=== PATIENT | female | born 1935 | race Caucasian/White ===

== ENCOUNTER → 2019-04-23 | Day surgery (SDC) | payer MEDICARE ==
--- NOTE | 2019-04-20 12:18 | Diagnostic Imaging Report ---
EXAMINATION: PA and lateral views of the chest. COMPARISON: None CLINICAL HISTORY: Preoperative study for orthopedic procedure DISCUSSION: Lines/tubes: None. Lungs: The lungs are well inflated and clear. There is no evidence of pneumonia or pulmonary edema. Pleura: There is no pleural effusion or pneumothorax. Heart and mediastinum: The cardiomediastinal silhouette is normal. Atherosclerotic calcifications of the thoracic aorta. Bones and soft tissues: No acute bony abnormalities. Degenerative changes in the thoracic spine . Cervical spine fusion hardware partially visualized. IMPRESSION: No acute cardiopulmonary abnormalities. Signed by: Dr. Goldy Amaro M.D. on 04/20/2019 12:15 PM
[2019-04-20 12:29] LABS: BASOPHILS % 0.2 % (0.0-1.0); EOSINOPHILS # (AUTO) 0.2 (0.0-0.4); EOSINOPHILS % 2.9 % (0.0-6.0); HEMATOCRIT 31.2 % (34.2-44.1); HEMOGLOBIN 10.3 g/dL (12.0-16.0); LYMPHOCYTES # (AUTO) 1.4 (1.0-3.2); LYMPHOCYTES % 25.9 % (18.0-39.1); MEAN CORPUSCULAR HEMOGLOBIN 29.4 pg (28-32); MEAN CORPUSCULAR VOLUME 89.1 fL (81-99); MONOCYTES # (AUTO) 0.3 (0.2-0.8); MONOCYTES % 5.8 % (4.4-11.3); NEUTROPHILS # (AUTO) 3.6 (2.1-6.9); NEUTROPHILS % 64.8 % (38.7-80.0); PLATELET COUNT 210 x10e3/uL (140-360); RED CELL DISTRIBUTION WIDTH 13.5 % (11.7-14.4)
[~2019-04-23] MED LIST: ACETAMINOPHEN/CODEINE 300MG - 30MG TAB ONE; AMLODIPINE BESYL5 MG PO; ATENOLOL50 MG PO; CEFAZOLIN SOD 1 GM/NS 50ML 50 ML IV ONE; DEXAMETHASONE SOD PHOS INJ 4 MG/ML VIAL ONE; FENTANYL CITRATE/PF 100MCG/2 ML INJ ONE; FLUMAZENIL 0.5MG/ 5ML VIAL ONE; HYDROMORPHONE 2MG/ML 2 MG/ML ML ONE; LIDOCAINE HCL 2% LOCAL INJ 5 ML SDV VIAL INJ ONE; LISINOPRIL10 MG PO; LOVASTATIN40 MG PO; MIDAZOLAM HCL 2 MG/2 ML VIAL ONE; OMEPRAZOLE40 MG PO; ONDANSETRON HCL INJ 2MG/ML 2ML 2 MG/ML VIAL ONE; PROPOFOL IV EMULSION 10 MG/ML 20 ML VIAL ONE; SEVOFLURANE INHAL SOLN 250 ML PEN BTL ONE; ULTRAM50 MG PO
--- OUTSIDE RECORDS SUMMARY | 2019-04-23 08:56 | XMS REPORT | Summary of Care ---
Author Author [facility] Outpatient Imaging [facility] Outpatient [facility] Address Unknown Phone Unavailable Encounter HQ Encntr_alikathy(FIN) [id number] Date(s): 02/14/19 - 02/14/19 [facility] [address] [facility], [address] [place] [phone] Discharge Disposition: Home or Self Care Attending Physician: Marcos Blue MD Referring Physician: Marcos Blue MD Vital Signs No data available for this section Problem List No data available for this section Allergies, Adverse Reactions, Alerts No data available for this section Medications No data available for this section Results No data available for this section Immunizations No data available for this section Procedures No data available for this section Social History No data available for this section Assessment and Plan No data available for this section
--- OUTSIDE RECORDS SUMMARY | 2019-04-23 08:56 | XMS REPORT | Continuity of Care Document ---
Author Author [employer] [facility] Address Unknown Phone Unavailable Problems Problem Status Onset Date Classification Date Reported Comments Source Cervical disc disorder, unspecified, unspecified cervical region 12/31/2017 04/04/2018 [facility] [place] M25.512 - PAIN IN LEFT SHOULDER Active 08/24/2017 [facility] Medications Medication Details Route Status Patient Instructions Ordering Provider Order Date Source Allergies, Adverse Reactions, Alerts Substance Category Reaction Severity Reaction type Status Date Reported Comments Source Immunizations Immunization Date Given Site Status Last Updated Comments Source Results Order Name Results Value Reference Range Date Interpretation Comments Source Knee wo contrast MRI Knee wo contrast MRI EXAM: MR LEFT KNEE WITHOUT CONTRAST DATE: 02/26/2019 2:17 PM CDT INDICATION: - M25.562 Pain in left knee, medial left knee pain for 4 weeks COMPARISON: None TECHNIQUE: Multiplanar, multisequence noncontrast imaging of the knee on the 3 Beti magnet. FINDINGS: Menisci: Medial meniscus: Horizontal cleavage tear is noted of the body and posterior horn. Lateral meniscus: Intact. Ligaments: The ACL, PCL, medial and lateral collateral ligaments and the capsular ligaments are intact. Extensor mechanism: The quadriceps tendon, patella and the patellar tendon are intact. The medial and lateral patellar retinaculum are intact. Muscles: No signal abnormality in the muscles. Cartilage: There is a 10 mm focus of high-grade cartilage loss in the posterior nonweightbearing medial femoral condyle with associated subchondral cystic changes. There is a small fissure in the posterior central weightbearing lateral tibial plateau with subchondral cystic changes. Several subcentimeter foci of high-grade cartilage loss are noted throughout the lateral and medial patellar facet with associated subchondral cystic changes. There is a large region of high-grade cartilage loss involving the patellar apex. Bone: A small knee joint effusion is noted. No fractures identified. Visualized bone marrow signal is within normal limits. Soft tissue: Within normal limits. No abnormality of the neurovascular structures. IMPRESSION: 1. Medial meniscal horizontal cleavage tear of the body and posterior horn 2. 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 Full-thickness cartilage fissure of the posterior weightbearing lateral tibial plateau 4. 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 SL: JOYCE 02/26/2019 - - Read by: Hans Schneider MD Dictated Date/time: 02/26/19 16:01 Electronically Signed by: Hans Schneider MD 02/26/19 16:06 FINAL REPORT [facility] Knee 1-2 Views unilateral DX Knee 1-2 Views unilateral DX EXAM: XR LEFT KNEE 2 VIEWS DATE: 02/14/2019 13:41 CDT INDICATION: - pain in left knee COMPARISON: None TECHNIQUE: AP and lateral radiographs of the knee FINDINGS: No acute fracture or malalignment is identified. Minimal marginal osteophytes visualized. There is no excessive joint fluid. No soft tissue abnormality is identified. IMPRESSION: 1. No significant radiographic abnormality. 02/14/2019 - - Read by: Destiney Dawson MD Dictated Date/time: 02/14/19 14:59 Electronically Signed by: Destiney Dawson MD 02/14/19 15:00 FINAL REPORT [facility] Thyroid US Thyroid US EXAM: US THYROID DATE: 05/26/2018 3:44 PM CDT INDICATION: - E04.1 Nontoxic single thyroid nodule ADDITIONAL INFORMATION: None. COMPARISON: None. TECHNIQUE: Multiplanar grayscale and color Doppler ultrasound of the neck were obtained in the area of the thyroid. FINDINGS: Thyroid parenchyma: Minimal heterogeneity Size: Right thyroid: 4.1 cm in span by 1.2 cm in AP dimension by 1.7 cm transversely. Left thyroid: 3.9 cm in span by 1.4 cm in AP dimension by 1.4 cm transversely. Isthmus thickness: 2.6 mm in thickness Nodule 1: Location: Right lower pole Size: 9.5 x 5.5 x 8.7 mm Composition: Cystic or almost completely cystic (0 points). Echogenicity: Anechoic (0 points). Shape: Wider than tall (0 points). Margins: Smooth (0 points). Echogenic foci: Absent (0 points). Other: None. ACR TI-RADS Score: TR1 - Benign (total 0 points). -- ACR recommendation: No f/u or FNA. Recommendations: No follow-up needed. Nodule 2: Location: Lower pole on left Size: 8.4 x 5.9 x 7.1 mm Composition: Mixed cystic and solid (1 point). Echogenicity: Isoechoic (1 point). Shape: Wider than tall (0 points). Margins: Smooth (0 points). Echogenic foci: Absent (0 points). Other: None. ACR TI-RADS Score: TR2 - Not suspicious (total 1-2 points). -- ACR recommendation: No f/u or FNA. Recommendations: No follow-up needed Cervical lymph nodes: Normal. IMPRESSION: 1. There are multiple benign-appearing nodules in the thyroid lobes bilaterally. The underlying heterogeneity may be indicative of early multinodular goiter. 05/26/2018 - - Read by: Venu Cabrera MD Dictated Date/time: 05/29/18 08:22 Electronically Signed by: Venu Cabrera MD 05/29/18 08:36 FINAL REPORT [facility] Spine cervical 2 or 3 view DX Spine cervical 2 or 3 view DX EXAM: XR CERVICAL SPINE 3 VIEWS DATE: 12/27/2017 1:27 PM [employer]PER[employer] INDICATION: m50.90 722.91 - M50.90 Cervical disc disorder, unspecified, unspecified cervical region COMPARISON: None available TECHNIQUE: AP, open-mouth odontoid and lateral radiographs of the cervical spine - 3 views FINDINGS: Osteopenia noted. Minimal grade 1 degenerative anterolisthesis present at C3-C4 Vertebral body heights are normal. No cervical spine fracture is identified. Satisfactory appearance of anterior cervical discectomy and fusion present at C4-C6. Osseous incorporation of interbody bone graft material noted. No prevertebral soft tissue edema observed. Mild degenerative disc disease present at C3-C4 Moderate degenerative disc disease present at C6-C7. Uncovertebral joint hypertrophy present at C3-C4, C6-C7. Multilevel mild bilateral facet arthropathy of the cervical spine noted. Calcification of the aortic arch noted. IMPRESSION: Satisfactory appearance of anterior cervical discectomy and fusion at C4 C6. Multilevel degenerative disc disease, uncovertebral joint hypertrophy, facet arthropathy of the cervical spine as described. 12/27/2017 - - Read by: Marcos Dunn MD Dictated Date/time: 12/27/17 15:55 Electronically Signed by: Marcos Dunn MD 12/27/17 17:35 FINAL REPORT [facility] Spine lumbar 2 or 3 views DX Spine lumbar 2 or 3 views DX EXAM: XR THORACIC SPINE 2 VIEWS EXAM: XR LUMBAR SPINE 2 VIEWS DATE: 08/24/2017 12:58 PM CDT INDICATION: - M25.512 Pain in left shoulder COMPARISON: None TECHNIQUE: AP and lateral radiographs of the thoracic and lumbar spine. DISCUSSION: Minimal S-shaped scoliosis of the thoracic spine. Thoracic and lumbar vertebral body heights are maintained. Mild disc height loss with anterior endplate sclerosis and moderate vertebral body osteophytes throughout the mid and lower thoracic spine. Moderate disc height loss at L4-5 and L5-S1. Mild anterior vertebral body osteophytes of the lower lumbar spine. Severe facet arthropathy at L4-S1. IMPRESSION: 1. Minimal S-shaped scoliosis of the thoracic spine. 2. Moderate degenerative disease of the mid and lower thoracic spine. 3. Moderate degenerative disc disease and severe facet arthropathy of the lower lumbar spine. 08/24/2017 - - Read by: Daryl Cervantes MD Dictated Date/time: 08/24/17 13:27 Electronically Signed by: Daryl Cervantes MD 08/24/17 13:30 FINAL REPORT [facility] Spine thoracic 3 views DX Spine thoracic 3 views DX EXAM: XR THORACIC SPINE 2 VIEWS EXAM: XR LUMBAR SPINE 2 VIEWS DATE: 08/24/2017 12:58 PM CDT INDICATION: - M25.512 Pain in left shoulder COMPARISON: None TECHNIQUE: AP and lateral radiographs of the thoracic and lumbar spine. DISCUSSION: Minimal S-shaped scoliosis of the thoracic spine. Thoracic and lumbar vertebral body heights are maintained. Mild disc height loss with anterior endplate sclerosis and moderate vertebral body osteophytes throughout the mid and lower thoracic spine. Moderate disc height loss at L4-5 and L5-S1. Mild anterior vertebral body osteophytes of the lower lumbar spine. Severe facet arthropathy at L4-S1. IMPRESSION: 1. Minimal S-shaped scoliosis of the thoracic spine. 2. Moderate degenerative disease of the mid and lower thoracic spine. 3. Moderate degenerative disc disease and severe facet arthropathy of the lower lumbar spine. 08/24/2017 - - Read by: Daryl Cervantes MD Dictated Date/time: 08/24/17 13:27 Electronically Signed by: Daryl Cervantes MD 08/24/17 13:30 FINAL REPORT [facility] Vital Signs Vital Sign Value Date Comments Source Encounters Location Location Details Encounter Type Encounter Number Reason For Visit Attending Provider ADM Date DC Date Status Source [facility] [place] [facility] [id number] Marcos Blue 08/24/2017 08/25/2017 [facility] [place] [facility] [id number] Marcos Blue 12/27/2017 12/28/2017 ELIESER Foster [facility] [place] [facility] [id number] Marcos Blue 05/26/2018 [facility] [place] [facility] [id number] Marcos Blue 02/14/2019 02/15/2019 [facility] Procedures Procedure Code Date Perfomer Comments Source
--- OUTSIDE RECORDS SUMMARY | 2019-04-23 08:56 | XMS REPORT | Summary of Care ---
Author Author [facility] Outpatient Imaging [facility] Outpatient [facility] Address Unknown Phone Unavailable Encounter HQ Alannantr_alikathy(FIN) [id number] Date(s): 05/26/18 - 05/26/18 [facility] [address] [facility], [address] [place], [place] [address] [phone] Discharge Disposition: Home or Self Care Attending [...]
--- OUTSIDE RECORDS SUMMARY | 2019-04-23 08:56 | XMS REPORT | Summary of Care ---
Author Author [facility] Outpatient Imaging [facility] Outpatient Imaging [facility] Address Unknown Phone Unavailable Encounter HQ Encntr_alikathy(FIN) [id number] Date(s): 12/27/17 - 12/27/17 [facility] [address], [address] [place], [place] [address] [phone] Encounter Diagnosis Cervical disc disorder, unspecified, unspecified cervical region (Final) - 12/30/17 Discharge Disposition: Home or Self Care Attending Physician: Marcos Blue MD Vital Signs No [...]
--- OUTSIDE RECORDS SUMMARY | 2019-04-23 08:56 | XMS REPORT | Summary of Care ---
Author Author [facility] Outpatient Imaging [facility] Outpatient [facility] Address Unknown Phone Unavailable Encounter HQ Encntr_harriet(FIN) [id number] Date(s): 08/24/17 - 08/24/17 [facility] Outpatient [facility] [address] [facility], [address] [place] [phone] Discharge Disposition: Home or Self Care Attending [...]
--- OUTSIDE RECORDS SUMMARY | 2019-04-23 08:56 | XMS REPORT ---
Author Author [facility] Address Unknown Phone Unavailable Care Team Providers Care Electrician Supervisor Name Role Phone GOLDY MILIAN Unavailable Unavailable Problems This patient has no known problems. Allergies, Adverse Reactions, Alerts This patient has no known allergies or adverse reactions. Medications This patient has no known medications. Results Test Description Test Time Test Comments Text Results Atomic Results Result Comments CHEST 2 VIEWS 2019-04-20 12:14:00 [place] [address] Patient Name: AL HOLT MR #: [id number] : 1935 Age/Sex: 84/F Req #: [id number] Adm Physician: Ordered by: GOLDY MILIAN MD Report #: [id number] Location: OR Room/Bed: Procedure: [id number] DX/CHEST 2 VIEWS Exam Date: Exam Time: REPORT STATUS: Signed EXAMINATION: PA and lateral views of the chest. COMPARISON: None CLINICAL HISTORY: Preoperative study for orthopedic procedure DISCUSSION: Lines/tubes: None. Lungs: The lungs are well inflated and clear. There is no evidence of pneumonia or pulmonary edema. Pleura: There is no pleural effusion or pneumothorax. Heart and mediastinum: The cardiomediastinal silhouette is normal. Atherosclerotic calcifications of the thoracic aorta. Bones and soft tissues: No acute bony abnormalities. Degenerative changes in the thoracic spine . Cervical spine fusion hardware partially visualized. IMPRESSION: No acute cardiopulmonary abnormalities. Signed by: Dr. Goldy Moreno M.D. on 04/20/2019 12:15 PM Dictated By: GOLDY MORENO MD Transcribed By: PANCHO on 04/20/191214 COPY TO: GOLDY MILIAN MD
[2019-04-23 13:15] VITALS: BP 136/67
--- NOTE | 2019-04-23 18:38 | Operative Report ---
DATE OF PROCEDURE: 04/23/2019 SURGEON: Goldy Bagley MD WARP COILER: Naveen Leon. PREOPERATIVE DIAGNOSIS: Left knee medial meniscal tear. POSTOPERATIVE DIAGNOSES: Left knee medial meniscal tear plus grade 3 chondromalacia of the medial femoral condyle. PROCEDURES: Left knee arthroscopy, partial medial meniscectomy, chondroplasty of the medial femoral condyle. INDICATIONS: The patient is an 84-year-old lady, who has a degenerative meniscal tear of her left knee. She has failed conservative management and would like to proceed with arthroscopic intervention. The risks and benefits have been discussed. The likelihood of some persistent discomfort has been explained. She states she understands and wishes to proceed. DESCRIPTION OF PROCEDURE: The patient was brought to the operating room and placed under general anesthetic. Her left lower extremity was prepped and draped in a sterile manner. A preoperative time-out was performed. A tourniquet placed in the upper thigh, was inflated to 300 mmHg. Standard arthroscopy portals were established. The knee was insufflated with sterile saline and systematically inspected. There was some grade 2 changes of chondromalacia of the undersurface of the patella. There was a complex tear of the posterior horn of the medial meniscus. There was associated grade 3 chondromalacia of the weightbearing surfaces of the medial femoral condyle. There were unstable fragments and loose pieces of cartilage floating around in the knee. The area of chondromalacia was debrided back to a more hook stable margin using a mechanical shaver. A partial medial meniscectomy was performed. I would estimate that at least 30% of the posterior horn of the medial meniscus had to be excised. Before and after photographs were taken. The cruciate ligaments and lateral compartment were unremarkable. The arthroscopic instruments were removed. The portal incisions were closed with nylon stitches. A sterile bandage was applied. There was no blood loss and all needle and sponge counts were correct. Goldy Bagley MD DR/GURPREET /[id number]
== END | disposition home or self-care (01) ==
LOC: OR 08:35
PROVIDERS: ATTEND Specialist
DX: S83.232A Complex tear of medial meniscus, current injury, left knee, initial encounter (principal); M94.262 Chondromalacia, left knee; R03.0 Elevated blood-pressure reading, without diagnosis of hypertension; E78.6 Lipoprotein deficiency; X58.XXXA Exposure to other specified factors, initial encounter; Z88.8 Allergy status to other drugs, medicaments and biological substances; Z01.810 Encounter for preprocedural cardiovascular examination; Z01.812 Encounter for preprocedural laboratory examination; Z01.818 Encounter for other preprocedural examination
CPT/HCPCS: 29881; 36415; 71046; 85025; 93005; J0690; J1100; J1170; J2001; J2250; J2405; J2704